=== PATIENT | female | born 1975 | race Caucasian/White ===

== ENCOUNTER 2024-06-21 13:41 | Emergency (ER) | payer OTHER, SELFPAY ==
[2024-06-21] VITALS (32 sets, daily range): BP systolic 144–181; BP diastolic 89–114; PULSE 57–79; RESP 12–19; TEMP 36.4; O2SAT 93–100
--- NOTE | ~2024-06-21 | XR_ITS ---
EXAMINATION: XR chest 1V portable DATE: 06/21/2024 15:53 INDICATION: Epigastric pain TECHNIQUE: frontal view of the chest was obtained. COMPARISON: Chest radiograph dated 10/21/2016 FINDINGS: The lungs remain clear with no focal airspace opacities, pulmonary edema, pleural effusion or pneumot horax. The cardiomediastinal silhouette is normal. Visualized bones and soft tissues are unremarkable . IMPRESSION: 1. No acute cardiopulmonary disease. Reviewed, dictated and finalized at location A.
[2024-06-21 14:16] LABS: Add Urine Microscopic? NO; Appearance Urine Clear (Clear); Bilirubin Urine Negative (Negative); Blood Urine Negative (Negative); Color Urine Light Yellow (Yellow); Glucose Urine UA Negative (Negative); Ketones Urine 1+ (Negative); Leukocyte Esterase Ur Negative LEU/UL (Negative); Nitrate Urine Negative (Negative); Protein Urine Negative (Negative); Specific Grav Ur >= 1.030 (1.010-1.020); Urobilinogen Urine 0.2 mg/dL (0.2-1.0); pH Urine 6.5 (5.0-8.0)
--- NOTE | 2024-06-21 14:18 | ED.ABDPAIN ---
HPI - Abdominal Pain General Chief Complaint: Back Pain/Injury Stated Complaint: abdominal pain/back pain Source: patient Mode of arrival: ambulatory Limitations: no limitations History of Present Illness HPI narrative: 48-year-old female with a history of depression, hypertension, epilepsy, diabetes presents to the ED with a 12 hour history of -- epigastric pain which radiates back. The pain is continuous. No exacerbating or relieving factors. Patient has nausea without any vomiting. No diarrhea. No fever. No dysuria or hematuria. patient had an ultrasound of the gallbladder in 2016 which is unremarkable. The epigastric pain was relieved by sublingual nitro. The pain decreased from a level of 7 to 2. MD elicited complaint: abdominal pain and other ( Epigastric pain) Onset (ago): hour(s) Pain Consistency: constant Location: epigastric Severity: severe Quality: aching Radiation: back Migration to: no migration Exacerbating factors: nothing Relieving factors: nothing Associated symptoms: nausea Related Data Allergies Allergy/AdvReac Type Severity Reaction Status Date / Time No Known Allergies Allergy Mild Verified 12/06/09 08:11 Review of Systems Review of Systems: All systems reviewed & are unremarkable except as noted in HPI and below Constitutional: Constitutional: Reports as per HPI and Reports no additional constitutional complaints Eyes: Eyes: Reports as per HPI and Reports no additional eye complaints ENT: Reports system reviewed and no additional complaints, except as documented and Reports as per HPI Cardiovascular: Cardiovascular: Reports as per HPI and Reports no additional cardiovascular complaints Respiratory: Respiratory: Reports as per HPI and Reports no additional respiratory complaints Gastrointestinal: Gastrointestinal: Reports as per HPI and Reports no additional gastrointestinal complaints Comments: Epigastric pain which is continuous the past 12 hours. Genitourinary: Genitourinary: Reports no additional female genitourinary complaints and Reports as per HPI Musculoskeletal: Musculoskeletal: Reports no additional musculoskeletal complaints and Reports as per HPI Integumentary/Breasts: Skin/Breast: Reports system reviewed and no additional complaints, except as docu and Reports as per HPI Neurologic: Reports system reviewed and no additional complaints, except as documented and Reports as per HPI Psychiatric: Psychiatric: Reports no additional psychiatric complaints and Reports as per HPI Endocrine: Endocrine: Reports no additional endocrine complaints and Reports as per HPI Hematologic/Lymphatic: Hematologic/Lymphatic: Reports no additional hematologic/lymphatic complaints and Reports as per HPI Allergic/Immunologic: Allergic/Immunologic: Reports no additional allergic/immunologic complaints and Reports as per HPI PMFSH Past Medical History Medical History (Updated 06/21/24 @ 18:17 by Andrew Brown MD) Depression with suicidal ideation Diabetes Epilepsy Hypertension Social History Social History (Updated 06/21/24 @ 14:47 by Andrew Brown MD) Social History: nonsmoker. No history of alcohol use. Exam Narrative: Blood pressure 176/106. Const: Orientation/consciousness: patient oriented x3 Limitations: no limitations HENMT: Head: normal to inspection Ears: external ears normal Face/Nose/Sinus: Normal external nose present Face and sinus: normal facial exam Mouth: Yes Normal oral and palatal mucosa present Throat: posterior oropharynx normal Eyes: Conjunctivae: conjunctivae normal Pupils: Equal, round and reactive pupils present EOM: EOMs intact bilaterally Direct Ophthalmoscopy: no photophobia Neck: Neck: normal visual inspection, no lymphadenopathy and no meningeal signs Chest: Chest palpation & inspection: normal inspection of the chest Resp: Effort & Inspection: normal respiratory effort Auscultation: clear to auscultation bila
--- NOTE | 2024-06-21 14:33 | ECG_ITS ---
Test Date: 2024-06-21 14:44:57 Measurements Intervals [place] Rate: 63 P: 66 DE: 144 QRS: 63 QRSD: 90 T: 101 QT: 414 QTc: 424 Interpretive Statements SINUS RHYTHM WITH SINUS ARRHYTHMIA POSSIBLE RIGHT ATRIAL ENLARGEMENT T WAVE ABNORMALITY IN HIGH LATERAL LEADS- CONSIDER ISCHEMIA BASELINE ARTIFACT- I, II, AVR, AVL ABNORMAL ECG No previous ECG available for comparison Electronically Signed On 06-21-2024 17:38:49 CDT by Emiliano Hardy D.O.
[2024-06-21 14:50] LABS: Basophils Absolute Auto 0.04 K/mm3 (0.00-0.10); Basophils Percent Auto 0.3 % (0.0-1.0); Eosinophils Absolute Auto 0.01 K/mm3 (0.02-0.50); Eosinophils Percent Auto 0.1 % (1.0-6.0); Hematocrit 41.1 % (35.0-49.0); Hemoglobin 12.8 g/dL (12.0-15.0); Immature Granulocyte Absolute 0.03 K/mm3 (0.00-0.00); Immature Granulocyte Percent A 0.2 % (0.0-0.0); Immature Platelet Fraction Pct 9.7 % (1.0-7.0); Lymphocytes Absolute Auto 0.92 K/mm3 (1.10-4.50); Lymphocytes Percent Auto 7.4 % (18.0-42.0); Mean Corpuscular HGB Conc 31.1 g/dL (32-36); Mean Corpuscular Hemoglobin 27.5 pg (27.0-31.0); Mean Corpuscular Volume 88.2 fL (78.0-102.0); Mean Platelet Volume 11.4 fl (9.2-11.8); Monocytes Absolute Auto 0.27 K/mm3 (0.10-0.90); Monocytes Percent Auto 2.2 % (2.0-11.0); Neutrophils Absolute Auto 11.17 K/mm3 (1.70-7.20); Neutrophils Percent Auto 89.8 % (50.0-70.0); Platelet Count Result 253 K/mm3 (150-420); Red Blood Count 4.66 M/mm3 (4.20-5.40); Red Cell Distribution Width 14.1 % (11.6-14.4); White Blood Count 12.4 K/mm3 (4.8-10.8)
[2024-06-21 14:51] LABS: Pregnancy On Board Control Positive; Urine Pregnancy Test Negative
[2024-06-21 15:06] LABS: Alanine Aminotransferase 8 U/L (14-59); Albumin Level 3.5 g/dL (3.4-5.0); Alkaline Phosphatase 109 U/L (46-116); Anion Gap 10 mmol/L (4-12); Aspartate Amino Transferase 16 U/L (15-37); Bilirubin,Total 0.2 mg/dL (0.00-1.00); Blood Urea Nitrogen 11 mg/dL (7-18); Carbon Dioxide 27 mmol/L (21-32); Chloride 100 mmol/L (98-108); Estimated CRCL calculation 90 ml/min; Estimated Glomerular Filt Rate > 60; Glucose 106 mg/dL (70-99); Lipase 24 U/L (16-77); Osmolality Calculated 283 mOsm/kg (285-295); Sodium 137 mmol/L (136-145); Total Protein 7.7 g/dL (6.4-8.2)
[2024-06-21 15:09] LABS: Lactic Acid Reflex 0.9 mmol/L (0.4-2.0); Troponin I 1056.7 ng/L (0.00-60.4)
[2024-06-21] MEDS: NITROGLYCERIN SL 0.4 MG TABLET SUBLINGUAL ×2 (15:28→18:47)
[2024-06-21] MEDS: ASPIRIN 81 MG CHEWABLE TABLET 324 MG PO (15:30)
[2024-06-21] MEDS: HEPARIN SOD/D5W 100 UNITS/ML 25,000 UNITS/250 ML BAG 8 UNITS IV CONT (15:31)
[2024-06-21] MEDS: HEPARIN SODIUM 5,000 UNITS/ML VIAL 4000 UNITS IV PUSH (15:46)
[2024-06-21 15:52] LABS: INR 0.9; Partial Thromboplastin Time 22.4 Sec (23.9-30.70); Prothrombin Time 10.4 Seconds (9.50-12.1)
[2024-06-21] MEDS: METOPROLOL TARTRATE 25 MG TABLET (15:59)
--- NOTE | 2024-06-21 16:47 | ECG_ITS ---
Test Date: 2024-06-21 17:01:35 Measurements Intervals [place] Rate: 61 P: 58 [place]: 140 QRS: 49 QRSD: 90 T: 97 QT: 472 QTc: 477 Interpretive Statements SINUS RHYTHM VOLTAGE CRITERIA FOR LVH T WAVE ABNORMALITY IN HIGH LATERAL LEADS- CONSIDER ISCHEMIA ABNORMAL ECG Compared to ECG 06/21/2024 14:44:57 NO SIGNIFICANT CHANGE Electronically Signed On 06-21-2024 17:43:21 CDT by Emiliano Hardy D.O.
[2024-06-21 17:13] LABS: Troponin I 1389.8 ng/L (0.00-60.4)
--- NOTE | 2024-06-21 19:10 | PC.NURSE ---
assumed care. report received from Chapito HUFFMAN. patient currently resting on stretcher with family at her side. call light in reach
--- NOTE | 2024-06-21 19:15 | PC.NURSE ---
REPORT TO ARMIDA MEZA \
--- NOTE | 2024-06-21 19:32 | PC.NURSE ---
waiting on room assignment at [facility]
[2024-06-21 19:47] LABS: Glucose Point of Care 101 mg/dl (65-105)
== END 2024-06-21 20:04 | disposition short-term general hospital (02) ==
PROVIDERS: Emergency Provider Internal Medicine Critical Care Medicine
DX: I21.4 Non-ST elevation (NSTEMI) myocardial infarction (principal); E11.9 Type 2 diabetes mellitus without complications; I10 Essential (primary) hypertension
CPT/HCPCS: 36415; 71045; 80053; 81003; 81025; 82948; 83605; 83690; 84484; 85025; 85055; 85610; 85730; 93005; 96365; 96366; 96375; 99285; A9270; J1644

== ENCOUNTER 2024-06-21 21:43 | Observation (INO) | payer OTHER, SELFPAY ==
--- NOTE | ~2024-06-21 | CT_ITS ---
Clinical Indication: Abdominal pain, elevated troponin CT Scan of the Chest, Abdomen, and Pelvis with Contrast: Technique: Contiguous sections were acquired throughout the chest, abdomen, and pelvis after intraven ous administration of 100 cc of Omnipaque 350. Dose reduction technique was used on this scan by calderon gotti automated exposure control and iterative reconstruction technique. The dose-length product (DL P) was 927.35 mGy-cm. Findings: There is no evidence of any significant mediastinal, hilar or axillary lymphadenopathy. The mediastin al soft tissues and vascular structures appear normal. No pulmonary embolus. No aortic aneurysm or di ssection. There is no evidence of pleural or pericardial effusion. The lungs are clear. No pulmonary nodules or infiltrates are noted. The liver, spleen, pancreas, gallbladder, adrenals and kidneys are within normal limits. No evidence of aortic aneurysm. No lymphadenopathy. No bowel obstruction or bowel wall thickening. There is no evidence to suggest acute appendicitis. Urinary bladder is unremarkable. No pelvic mass seen. No ascites. Impression: No significant abnormalities seen. Reviewed, dictated and finalized at [facility]. Impression: No significant abnormalities seen.
[2024-06-21 20:40] VITALS: BP 160/94; PULSE 61; RESP 18; TEMP 36.4; O2SAT 98; BMI 29.8
--- NOTE | 2024-06-21 20:41 | PC.NURSE ---
Pt arrived at 2040 by EMS from [facility] with heparin gtt. Heparin running at 800 units/8mls /hr. Awaiting assessment and further orders from provider.
--- NOTE | 2024-06-21 20:41 | ADMGEN ---
This patient, Lisa Faulkner, was admitted to IMU Room 203-01. Patient/family oriented to hospital policies and general routines including ID bracelet, bed and alarms, visiting hours, pain management, procedures, bathroom and other care routines, personal items, smoking policy, room service/diet, and visiting hours. Information on how to activate the Rapid Response Team has been discussed. Patient/Family are encouraged to report perceived risks to care and to ask questions if they do not understand what they are told or what they should do.
[2024-06-21 21:16] VITALS: PULSE 63
--- NOTE | 2024-06-21 21:16 | ECG_ITS ---
Test Date: 2024-06-21 22:01:17 Measurements Intervals [place] Rate: 66 P: 63 AR: 138 QRS: 44 QRSD: 85 T: 111 QT: 422 QTc: 443 Interpretive Statements SINUS RHYTHM MINIMAL Q WAVES- INFERIOR LEADS CANNOT R/O SEPTAL INFARCT, AGE INDETERMINATE T WAVE ABNORMALITY IN HIGH LATERAL LEADS- CONSIDER ISCHEMIA BASELINE ARTIFACT- I, II, III, AVR, AVL ABNORMAL ECG Compared to ECG 06/21/2024 17:01:35 NO SIGNIFICANT CHANGE Electronically Signed On 06-22-2024 06:42:27 CDT by Emiliano Hardy D.O.
--- NOTE | 2024-06-21 21:16 | PC.NURSE ---
Pt arrived at 2040, unable to add telemetry monitoring initially. Called [facility] to have patient discharged from tele there. Then able to add to our telemetry at 2115.
--- NOTE | 2024-06-21 21:45 | PM.IMHP ---
H&P: HPI History of Present Illness Date/Time: 06/21/24 21:30 Chief Complaint: Elevated troponins. Narrative: This is a pleasant 48-year-old female with hypertension, type 2 diabetes mellitus, depression, and anxiety who is being directly admitted to the IMU from the emergency department the [facility] for Cardiology consultation after she was found to have elevated troponins. The patient provides the following history. Shortly after getting up at 02:30 to go to work she developed a sharp and shooting pain in the periumbilical. The pain does radiate through to her back. It seems to be worse when lying flat or standing straight up and is somewhat improved when in a position or bending forwards. Ibuprofen did take the edge off but did not completely take away the pain. Associated symptoms include nausea, hot and cold sweats, lightheadedness, and feelings of anxiety. She left work at about 07:00 and was able to sleep after taking ibuprofen. When she got up the symptoms were still there and she then presented to the emergency department at the [facility]. She has never had similar symptoms. She has indigestion perhaps 1 time a month and the symptoms are not at all similar. She has not had exertional chest pain. She also denies syncope, near syncope, fever, cold and flu symptoms, palpitations, pleuritic pain, orthopnea, paroxysmal nocturnal dyspnea, significant lower extremity edema, calf pain, vomiting, diarrhea, constipation, melena, hematochezia, and dysuria. Of note, the patient has been off of all medications for 3 years due to cost. She monitors her blood pressure at home and is typically 130 over the 100. Glucose is typically 120 when she checks it. In the ED: On arrival her blood pressure was 179/106, pulse 72, respiratory rate 16, pulse ox 99% room air, temperature 97.6?. Labs were significant for WBC count of 12.4, hemoglobin 12.8, platelet 253, sodium 137, potassium 4.0, BUN 11, creatinine 0.69, glucose 106, lactic acid 0.9, high sensitivity troponin 1056.7, lipase 24. Chest x-ray showed no acute cardiopulmonary disease. EKG showed sinus rhythm with some T-wave abnormalities in the high lateral leads. Hospice Administrator on-call recommended giving the patient a dose of metoprolol tartrate and starting a heparin drip. Transfer was initiated to [facility] for Cardiology consultation. At the time my evaluation she is resting comfortably and does not have any significant discomfort. Garrett suicide Score was elevated as the patient reports suffering from depression and has had thoughts of suicide within the last month though she could not tell me a specific plan. She is not having suicidal or harmful thoughts at this time. She has good support system; family members are at bedside. Review of Systems Review of Systems: 12 systems were reviewed and are negative except for as per HPI. [facility] Past Medical History Medical History (Updated 06/21/24 @ 23:52 by Joya Hodge PA-C) Depression with anxiety Epilepsy Hypertension Type 2 diabetes mellitus Surgical History Surgical History (Updated 06/21/24 @ 22:17 by Joya Hodge PA-C) No history of previous surgery Family History Family History Father Acute myocardial infarction Social History Social History (Updated 06/21/24 @ 22:19 by Joya Hodge PA-C) Social History: Surrogate medical decision maker: Abby Faulkner, mother. Code status: Full code. Smoking status: Never smoker Alcohol intake: never Substance use: never Substance use type: does not use Do You Feel Safe in your Home?: Yes Lack of Transportation: YES Lack of Food: Sometimes True Current Housing: I Have Housing Concerned About Future Housing: YES Difficulty Paying Gas/Electric Bills: No Difficulty Paying for Meds: No Currently Unemployed: No Education: High School Diploma/GED Dif
[2024-06-21 21:49] LABS: Partial Thromboplastin Time 60.8 Seconds (22.3-36.8)
[2024-06-21 22:00] VITALS: PULSE 67
[2024-06-21 22:03] LABS: Troponin I 0.445 ng/mL (0.000-0.034)
[2024-06-21 22:42] LABS: Glucose Point of Care 132 mg/dl (65-105)
[2024-06-21] MEDS: ACETAMINOPHEN 325 MG TABLET 650 MG PO (22:45)
--- NOTE | 2024-06-21 22:45 | PC.NURSE ---
heparin gtt held per provider order
[2024-06-21 23:21] LABS: Alanine Aminotransferase 11 U/L (6-35); Albumin Level 4.3 g/dL (3.5-5.1); Alkaline Phosphatase 105 U/L (38-126); Anion Gap 8 mmol/L (4-12); Aspartate Amino Transferase 28 U/L (14-36); Bilirubin,Total 0.3 mg/dL (0.2-1.3); Blood Urea Nitrogen 10 mg/dL (7-17); Calcium 9.1 mg/dL (8.4-10.2); Carbon Dioxide 23 mmol/L (22-30); Chloride 105 mmol/L (98-107); Estimated CRCL calculation 103 ml/min; Estimated Glomerular Filt Rate > 60; Glucose 103 mg/dL (65-110); Lipase 109 U/L (23-300); Potassium 4.1 mmol/L (3.4-5.0); Sodium 136 mmol/L (137-145)
[2024-06-22] VITALS (35 sets, daily range): BP systolic 114–163; BP diastolic 64–106; PULSE 46–83; RESP 12–20; TEMP 36.4–36.6; O2SAT 96–100
--- NOTE | 2024-06-22 | ECHO_ITS ---
Patient Info Name: Lisa Faulkner Age: 48 years : 1975 Gender: Female Ht: 65 in Wt: 175 lbs BSA: 1.93 m2 HR: 66 bpm BP: 151 / 99 mmHg Heart Rhythm: Sinus Rhythm Technical Quality: Fair Exam Date: 06/22/2024 11:49 AM Exam Location: Echo Lab Patient Status: Inpatient Admit Date: 06/21/2024 Staff Ordering Physician: Escobar Mora MD/maria fernanda) Quality Assurance Calibrator: Louise Bryant RDCS Attending Provider: Alejo Loza MD Referring Physician: Morgan MCMULLEN; Exam Type: CA echo doppler color flow Study Info Indications - Elevated Troponin Complete two-dimensional, color flow and Doppler transthoracic echocardiogram is performed. Summary 1. Complete two-dimensional, color flow and Doppler transthoracic echocardiogram is performed. 2. Left ventricular chamber dimension is normal. 3. Left ventricular systolic function is mildly reduced, estimated at 40-45%. 4. There is hypokinesis of the septum, basal and mid anterior wall, basal and mid inferior wall. 5. Right ventricular systolic function is normal. 6. There is mild mitral valve regurgitation. Left Ventricle There is hypokinesis of the septum, basal and mid anterior wall, basal and mid inferior wall. Left ventricular chamber dimension is normal. Left ventricular systolic function is mildly reduced, estimated at 40-45%. There is no increased left ventricular wall thickness. Right Ventricle Right ventricular chamber dimension is normal. Right ventricular systolic function is normal. Left Atria Left atrial chamber dimension is normal. Right Atria Right atrial chamber dimension is normal. Atrial Septum Intact interatrial septum visualized by color flow imaging. Aortic Valve The aortic valve is trileaflet. There is mild aortic valve sclerosis. There is no aortic valve stenosis. There is no aortic valve regurgitation. Pulmonic Valve The pulmonic valve is not well visualized. Mitral Valve There is mild mitral valve regurgitation. Tricuspid Valve There is trace tricuspid valve regurgitation. Pericardium/Pleural There is no pericardial effusion. Inferior Vena Cava Normal inferior vena cava with >50% collapse upon inspiration consistent with normal right atrial pressure, 3 mmHg. Aorta The aortic root size at the sinus of Valsalva is normal. Left Ventricular Outflow Tract Name Value Normal LVOT 2D LVOT Diameter 1.9 cm LVOT Doppler LVOT Peak Gradient 4 mmHg LVOT Mean Gradient 2 mmHg LVOT VTI 22 cm LVOT VTI/AV VTI Ratio 0.8 LVOT Stroke Volume 65 ml LVOT CO 3.0 l/min LVOT CI 1.6 l/min/m2 Pulmonic Valve Name Value Normal PV Doppler PV Peak Gradient 2 mmHg Mitral Valve
[2024-06-22] MEDS: SODIUM CHLORIDE 0.9% IV 1,000 ML 150 ML IV CONT (00:34)
[2024-06-22] MEDS: HEPARIN SOD/D5W 100 UNITS/ML 25,000 UNITS/250 ML BAG 8 UNITS IV CONT (00:35)
[2024-06-22 00:44] LABS: Basophils Absolute Auto 0.1 K/mm3 (0.0-0.1); Basophils Percent Auto 0.4 % (0.2-1.2); Eosinophils Absolute Auto 0.1 K/mm3 (0-0.3); Eosinophils Percent Auto 0.8 % (0-4.4); Hematocrit 35.7 % (37.0-47.0); Hemoglobin 11.4 g/dL (12.0-15.0); Immature Granulocyte Absolute 0.26 K/mm3 (0.00-0.031); Immature Granulocyte Percent A 2.1 % (0-0.5); Lymphocytes Absolute Auto 1.41 K/mm3 (0.9-3.2); Lymphocytes Percent Auto 11.2 % (18.3-44.2); Mean Corpuscular HGB Conc 31.9 g/dl (32-36); Mean Corpuscular Hemoglobin 27.9 pg (26-34); Mean Corpuscular Volume 87.5 fl (80-100); Mean Platelet Volume 10.8 fl (7.4-10.4); Monocytes Absolute Auto 0.5 K/mm3 (0.1-0.6); Monocytes Percent Auto 4.3 % (2.6-8.5); Neutrophils Absolute Auto 10.2 K/mm3 (1.3-6.7); Neutrophils Percent Auto 81.2 % (45.5-73.1); Platelet Count Result 360 k/mm3 (150-375); Red Blood Count 4.08 M/mm3 (4.2-5.4); Red Cell Distribution Width 14.2 % (11.5-14.5); White Blood Count 12.5 K/mm3 (4.5-10.0)
[2024-06-22 00:55] LABS: INR 1.1; Prothrombin Time 14.4 Seconds (11.1-14.7)
[2024-06-22 01:13] LABS: Troponin I 0.362 ng/mL (0.000-0.034)
[2024-06-22 03:56] LABS: Cholesterol 175 mg/dL (0-200); HDL Direct 57 mg/dL; Triglycerides 98 mg/dL (<150)
[2024-06-22 04:06] LABS: LDL Cholesterol Direct 84 mg/dL
[2024-06-22 04:12] LABS: Hemoglobin A1C 5.6 % (<5.7)
[2024-06-22 04:15] LABS: Troponin I 0.291 ng/mL (0.000-0.034)
[2024-06-22] MEDS: HEPARIN SODIUM 5,000 UNITS/ML VIAL 4000 UNITS IV PUSH (07:14)
[2024-06-22 07:25] LABS: Glucose Point of Care 98 mg/dl (65-105)
[2024-06-22] MEDS: METOPROLOL TARTRATE 25 MG TABLET PO ×2 (09:26→21:11)
--- NOTE | 2024-06-22 10:05 | PM.IMPN ---
Progress Note: A&P Assessment and Plan (1) Non-ST elevated myocardial infarction (non-STEMI): Code(s): I21.4 - Non-ST elevation (NSTEMI) myocardial infarction Status: Acute Assessment and Plan: Patient presents with acute onset of epigatric pain. CT Ch/A/P was negative for acute findings. No PE Lipase normal. LFTs normal. Troponin elevated to 0.445. Lipid panel noted. EKG showing T wave inversion high lateral leads. On heparin drip for possible LHC today. Discussed with Cardiology COntinue metoprolol. Add ASA and Lipitor. (2) Abdominal pain: Code(s): R10.9 - Unspecified abdominal pain Status: Acute Assessment and Plan: Concern for anginal equivalent. If cardiac ischemia evaluation negative, consider gastritis. Add Protonix (3) Hypertension: Code(s): I10 - Essential (primary) hypertension Status: Acute Assessment and Plan: Patient's blood pressure was reviewed on 06/22/24 Blood pressure mild elevated Will continue metoprolol (4) Type 2 diabetes mellitus: Code(s): E11.9 - Type 2 diabetes mellitus without complications Status: Acute Assessment and Plan: A1c 5.6%. The patient's blood glucose was reviewed on 06/22 Glucose remains well controlled. Continue AccuCheks covering with sliding scale. Hypoglycemia protocol available as needed. Continue to monitor (5) Epilepsy: Code(s): G40.909 - Epilepsy, unspecified, not intractable, without status epilepticus Status: Acute Assessment and Plan: Patient developed seizure disorder at age 15. She has been seizure free for 14 years with 12 of those years without medications. (6) Depression with anxiety: Code(s): F41.8 - Other specified anxiety disorders Status: Acute Assessment and Plan: Mood stable Plan DVT prophylaxis - Heparin Code status - full Subjective Date/time seen: 06/22/24 10:05 Interval history: 48yo female with diet controlled DM, HTN and seizures here for upper abdominal pain and elevated Trop. Patient feels better overall but having headache today with slight nausea. Headache may be from caffeine withdrawal. She described the pain as sharp located upper abdomen that radiated straight through to the back. Exam Narrative: AF 97.9 151/99 76 14 100% ra Gen - NARD Chest - CTA bilaterally, nml RR CV - RRR S1/S2. Tele showing occasional bradycardia Abd - Soft, ND, mild epigastric pain. Ext - No pedal edema Neuro - Alert and oriented. Nonfocal exam. Psych - Nml mood and affect Skin - Warm and dry Objective Data Vital Signs Vital Signs: Vital Signs - 24 hr 06/21/24 20:40 06/22/24 00:10 06/21/24 21:00 Temperature 97.5 F L 97.8 F Pulse Rate 61 68 Respiratory Rate 18 16 Blood Pressure 160/94 H 143/85 H Pulse Oximetry 98 99 Oxygen Delivery Room Air 06/21/24 22:00 06/22/24 00:00 06/21/24 21:16 Temperature Pulse Rate 67 69 63 Respiratory Rate Blood Pressure Pulse Oximetry Oxygen Delivery 06/22/24 01:55 06/22/24 03:00 06/22/24 04:41 Temperature 98 F Pulse Rate 62 62 Respiratory Rate 20 Blood Pressure 148/89 H Pulse Oximetry 98 Oxygen Delivery Room Air 06/22/24 04:00 06/22/24 06:00 06/22/24 08:35 Temperature 97.9 F Pulse Rate 71 68 66 Respiratory Rate 14 Blood Pressure 151/99 H Pulse Oximetry 100 Oxygen Delivery 06/22/24 09:26 Temperature Pulse Rate 76 Respiratory Rate Blood Pressure Pulse Oximetry Oxygen Delivery Intake/Output Intake/Output: Intake & Output 06/19/24 06/20/24 06/21/24 06/22/24 23:59 23:59 23:59 23:59 Intake Total 553.2 Output Total 500 Balance 53.2 Meds/Results Medications: Active Medications Generic Name Dose Route Start Last Admin Trade Name Freq PRN Reason Stop Dose Admin Acetaminophen 650 mg 06/21/24 21:44 06/21/24 22:45 Acetaminophen 325 Mg Tablet PO 650
--- NOTE | 2024-06-22 11:29 | PM.CNCAR ---
Assessment and Plan Assessment and plan (1) Non-ST elevated myocardial infarction (non-STEMI): Code(s): I21.4 - Non-ST elevation (NSTEMI) myocardial infarction Status: Acute Assessment and Plan: Unclear if her abdominal pain is an anginal equivalent, however, given the degree of troponin elevation along with risk factors for heart disease, recommended LHC. Discussed indication for the procedure, procedure details, risks vs benefits, alternative management options, etc with the patient. Patient agreeable to proceed. Will plan for LHC today. Continue Heparin drip in the meantime. Further recommendations and plan pending results of LHC. Echocardiogram ordered and pending. (2) Abdominal pain: Code(s): R10.9 - Unspecified abdominal pain Status: Acute Assessment and Plan: As above. If cardiac workup negative, recommended evaluating for GI etiology. (3) Type 2 diabetes mellitus: Code(s): E11.9 - Type 2 diabetes mellitus without complications Status: Acute Assessment and Plan: Hgb A1c is 5.6. Management as per primary team. (4) Hypertension: Code(s): I10 - Essential (primary) hypertension Status: Acute Assessment and Plan: Elevated. Started on Metoprolol, continue. Likely will need another antihypertensive agent, will plan to start pending results of echo and LHC. Plan Recommendations and plan discussed with Hospitalist. History of Present Illness History of Present Illness Consult date/time: 06/22/24 11:29 Requesting physician: Joya Hodge PA-C Consult reason: Other (NSTEMI) Reason For Visit: NSTEMI Narrative: This is a 48 year old female with hypertension, diet-controlled type 2 diabetes mellitus, seizure disorder, depression who had acute onset periumbilical and epigastric abdominal pain at 2:30 AM on 06/21. Pain radiated to her back. No chest pain. She was evaluated at [facility] ED, where it was noted that her abdominal pain improved with sublingual NTG. EKG showed sinus rhythm, T-wave inversions in the high lateral leads. No prior EKG available for comparison. Her initial troponin at [facility] was 1,056 [0-60] with repeat at 1,389. She was started on Heparin drip and transferred to [facility] for cardiology evaluation. Troponins here are 0.445, 0.362, 0.291. CXR negative for acute findings. CTA of the chest / abdomen / pelvis without any significant abnormalities. Blood pressure as high as 179/106 on admission. Patient denies any prior cardiac history. Reports her father had KS resulting in 2 stents at the age of 55. No current or past tobacco use, alcohol use, or illicit drug use. Patient reports that she does not take any medications at home due to cost. Review of Systems Review of Systems: All systems reviewed & are unremarkable except as noted in HPI and below (HPI) [facility] Past Medical History Medical History Depression with anxiety Epilepsy Hypertension Type 2 diabetes mellitus Surgical History Surgical History No history of previous surgery Family History Family History Father Acute myocardial infarction Social History Social History Social History: Surrogate medical decision maker: Abby Faulkner, mother. Code status: Full code. Smoking status: Never smoker Alcohol intake: never Substance use: never Substance use type: does not use Do You Feel Safe in your Home?: Yes Lack of Transportation: YES Lack of Food: Sometimes True Current Housing: I Have Housing Concerned About Future Housing: YES Difficulty Paying Gas/Electric Bills: No Difficulty Paying for Meds: No Currently Unemployed: No Education: High School Diploma/GED Difficulty w/ Childcare or Family Care: No Additional living arrangemen
[2024-06-22 11:34] LABS: Glucose Point of Care 118 mg/dl (65-105)
[2024-06-22] MEDS: PANTOPRAZOLE SODIUM IV 40 MG VIAL IV PUSH ×2 (11:58→21:12)
[2024-06-22] MEDS: ASPIRIN 81 MG CHEWABLE TABLET PO (11:58)
[2024-06-22] MEDS: ATORVASTATIN 40 MG TABLET PO (11:59)
--- NOTE | 2024-06-22 13:41 | WPDMODSED ---
Moderate Sedation Note-Pt Data Patient Data Diagnosis: NSTEMI Present Complaint: NSTEMI Procedure to be performed/Plan: Coronary angiography, left heart cath, +/- PCI Allergies Allergy/AdvReac Type Severity Reaction Status Date / Time No Known Allergies Allergy Mild Verified 06/21/24 21:37 Home Medications Medication Instructions Recorded Confirmed Type No Home Medications 06/21/24 06/21/24 History Current Medications: Active Medications Acetaminophen (Acetaminophen 325 Mg Tablet) 650 mg PO Q6H PRN PRN Reason: Mild Pain (1-3) or Fever Last Admin: 06/21/24 22:45 Dose: 650 mg Aspirin (Aspirin 81 Mg Chewable Tablet) 81 mg PO DAILY@0800 [facility] Last Admin: 06/22/24 11:58 Dose: 81 mg Atorvastatin Calcium (Atorvastatin 40 Mg Tablet) 40 mg PO DAILY [facility] Last Admin: 06/22/24 11:59 Dose: 40 mg Dextrose (Dextrose 50% 25 Gm/50 Ml Syringe) 12.5 gm IV PUSH PRN PRN; Protocol PRN Reason: Hypoglycemia Glucagon (Glucagon For Inj 1 Mg Vial) 1 mg IM PRN PRN; Protocol PRN Reason: Hypoglycemia Glucose (Glucose Oral Gel 15 Gm Of Glucse In 37.5 Gm Tube) 15 gm PO PRN PRN; Protocol PRN Reason: Hypoglycemia Heparin Sodium (Porcine) (Heparin Sodium 5,000 Units/Ml Vial) 4,000 units IV PUSH PRN PRN PRN Reason: aPTT less than 55 seconds Last Admin: 06/22/24 07:14 Dose: 4,000 units Heparin Sodium (Porcine) (Heparin Sodium 5,000 Units/Ml Vial) 2,500 units IV PUSH PRN PRN PRN Reason: aPTT 55 - 70 seconds Dextrose (Dextrose 5% 1,000 Ml) 1,000 mls @ 100 mls/hr IVPB PRN PRN; Protocol PRN Reason: Hypoglycemia Heparin Sodium/Dextrose (Heparin Sodium/D5w 100 Units/Ml) 25,000 units in 250 mls @ 11 mls/hr IV CONT .[id number] [facility]; Protocol Last Titration: 06/22/24 07:14 Dose: 1,100 units/hr, 11 mls/hr Insulin Aspart (Insulin Aspart (*Bkc) 100 Units/Ml) 2 - 5 units SUB-Q TIDWM [facility]; Protocol Last Admin: 09/03/24 09:33 Dose: Not Given Insulin Aspart (Insulin Aspart (*Bkc) 100 Units/Ml) 1 - 2 units SUB-Q HS KIMBER[facility]; Protocol Metoprolol Tartrate (Metoprolol Tartrate 25 Mg Tablet) 25 mg PO Q12HR KIMBERLY Last Admin: 06/22/24 09:26 Dose: 25 mg Morphine Sulfate (Morphine Sulfate (*Crx) 2 Mg/Ml Inj) 2 mg IV PUSH Q4H PRN PRN Reason: Pain Rated 7-10 Nitroglycerin (Nitroglycerin Sl 0.4 Mg Tablet) 0.4 mg SUBLINGUAL Q5MIN PRN PRN Reason: Chest Pain Pantoprazole Sodium (Pantoprazole Sodium Iv 40 Mg Vial) 40 mg IV PUSH Q12HR [facility] Last Admin: 06/22/24 11:58 Dose: 40 mg Perflutren Lipid Microsphere (Perflutren Lipid Microspheres 1.5 Ml Vial Diluted To 10 Ml Total Volume) 0 ml IV PUSH ONCE PRN; Protocol PRN Reason: adequate visualization Stop: 06/25/24 09:09 Sedation/Anesthesia: No previous sedation/anesthesia problems (including family history). [facility] Past Medical History Medical History Depression with anxiety Epilepsy Hypertension Type 2 diabetes mellitus Surgical History Surgical History No history of previous surgery Family History Family History Father Acute myocardial infarction Social History Social History Social History: Surrogate medical decision maker: Abby Faulkner, mother. Code status: Full code. Smoking status: Never smoker Alcohol intake: never Substance use: never Substance use type: does not use Do You Feel Safe in your Home?: Yes Lack of Transportation: YES Lack of Food: Sometimes True Current Housing: I Have Housing Concerned About Future Housing: YES Difficulty Paying Gas/Electric Bills: No Difficulty Paying for Meds: No Currently Unemployed: No Education: High School Diploma/GED Difficulty w/ Childcare or Family Care: No Additional living arrangements comments: Lives alone in [place]. Since sister live nearby. Additional occupation/education com
--- NOTE | 2024-06-22 13:52 | WPDCARDPROC ---
Cardiac Cath Procedure Note Date of procedure:: 06/22/24 Performing physician:: CATHETERIZATION LABORATORY REPORT Procedure Date: 06/22/2024 Clinical Nursing Professor: Escobar Mora M.D., [facility]? Referring Physician: Escobar Mora M.D. ? Anesthesia: Versed and Fentanyl were ordered and given in my presence at 12:44, procedure ended at 13:29. Supervision of nurse monitored moderate sedation with Versed and Fentanyl was provided for 45 minutes. Total of Versed 1mg and Fentanyl 50mcg were administered by the Office Workforce Planner RN Debbie Bates. Pre-op Diagnosis: Coronary artery disease Post-op Diagnosis: Moderate non-obstructive coronary artery disease of the obtuse marginal branch. IFR negative at 0.99 (pathological is <0.89). Procedure(s): 1. Moderate sedation 2. Ultrasound-guided access of the right radial artery 3. Coronary angiography 4. Left heart cath Access Site: Right radial artery Brief History and Clinical Indications: Patient is a 48 year old female who is referred for [facility] for NSTEMI All risks, benefits and alternatives to left heart catheterization with or without percutaneous coronary intervention was discussed at length with the patient. Risk of complications including but not limited to bleeding, infection, arrhythmia, stroke, worsening kidney function, blood loss, groin hematoma, limb loss, emergency coronary artery bypass grafting, and even were discussed with the patient and all questions were answered. The patient understood and wished to proceed. Time out called, patient name, date of , medical record number, allergies, procedure performed, identify Clinical Nursing Professor, patient and staff member concurred with accurate data, procedure carried on. Findings: LEFT HEART CATHETERIZATION FINDINGS: 1. Left main: The left main coronary artery is widely patent without any significant obstructive disease. 2. Left anterior descending: The proximal LAD has mild disease. Remainder of the LAD has luminal irregularities. 3. Ramus: Luminal irregularities. 4. Left circumflex: The left circumflex artery has luminal irregularities. The obtuse marginal branch has moderate disease in its proximal-mid portion. 5. Right coronary artery: The RCA is the dominant vessel. The mid portion of the RCA has mild disease. Description of Procedure: Informed consent signed and placed in the chart. Patient transferred to tag and label cutter room. Prepped and draped in usual sterile fashion. 2% lidocaine injected subcutaneously in right wrist area. 22-gauge venipuncture catheter used to access the right radial artery under ultrasound guidance. 6-FR slender sheath placed in right radial artery. Nitroglycerine and Verapamil were given intraarterial through the sheath. Versacore wire advanced under fluoroscopy 5F Tig 4 diagnostic catheter engaged Left Main Coronary Artery. 5F Tig 4 diagnostic catheter engaged Right Coronary Artery Multiple orthogonal angiogram obtained and reviewed. We decided to proceed with IFR evaluation of the OM lesion. Angiomax was used for anticoagulation. 6F CLS 3.0 guide catheter was used to intubate the left main. 0.014 IFR wire was advanced into the vessel, calibrated, and then advanced distal to the lesion in the OM. IFR was 0.99 (Negative. Pathological is <0.89). IFR wire was removed. Intracoronary NTG was administered No angiographic complications identified. Hemostasis was achieved by application of TR band. Disposition: Floor Plan: The patient will be monitored in the recovery area. Continue aggressive medical therapy and risk factor modification. ? Escobar Mora M.D. Interventional Cardiology
[2024-06-22] MEDS: SODIUM CHLORIDE 0.9% IV 1,000 ML 125 ML IV CONT (18:38)
[2024-06-22 20:58] LABS: Glucose Point of Care 108 mg/dl (65-105)
[2024-06-23] VITALS (10 sets, daily range): BP systolic 144–161; BP diastolic 88–92; PULSE 48–66; RESP 18; TEMP 36.1–36.6; O2SAT 99–100
[2024-06-23 05:20] LABS: Basophils Percent Auto 0.4 % (0.2-1.2); Eosinophils Absolute Auto 0.2 K/mm3 (0-0.3); Eosinophils Percent Auto 1.6 % (0-4.4); Hemoglobin 11.2 g/dL (12.0-15.0); Immature Granulocyte Absolute 0.03 K/mm3 (0.00-0.031); Immature Granulocyte Percent A 0.3 % (0-0.5); Lymphocytes Absolute Auto 1.78 K/mm3 (0.9-3.2); Lymphocytes Percent Auto 18.7 % (18.3-44.2); Mean Corpuscular HGB Conc 31.1 g/dl (32-36); Mean Corpuscular Hemoglobin 27.8 pg (26-34); Mean Corpuscular Volume 89.3 fl (80-100); Mean Platelet Volume 11.7 fl (7.4-10.4); Monocytes Absolute Auto 0.5 K/mm3 (0.1-0.6); Neutrophils Absolute Auto 7.1 K/mm3 (1.3-6.7); Platelet Count Result 296 k/mm3 (150-375); Red Blood Count 4.03 M/mm3 (4.2-5.4); White Blood Count 9.5 K/mm3 (4.5-10.0)
[2024-06-23 05:31] LABS: Anion Gap 9 mmol/L (4-12); Blood Urea Nitrogen 9 mg/dL (7-17); Calcium 8.7 mg/dL (8.4-10.2); Carbon Dioxide 25 mmol/L (22-30); Chloride 102 mmol/L (98-107); Estimated CRCL calculation 103 ml/min; Estimated Glomerular Filt Rate > 60; Glucose 101 mg/dL (65-110); Potassium 3.6 mmol/L (3.4-5.0); Sodium 136 mmol/L (137-145)
[2024-06-23 07:57] LABS: Glucose Point of Care 89 mg/dl (65-105)
[2024-06-23] MEDS: ATORVASTATIN 40 MG TABLET PO (09:25)
[2024-06-23] MEDS: METOPROLOL TARTRATE 25 MG TABLET PO (09:26)
[2024-06-23] MEDS: ASPIRIN 81 MG CHEWABLE TABLET PO (09:26)
[2024-06-23] MEDS: PANTOPRAZOLE SODIUM IV 40 MG VIAL IV PUSH (09:26)
--- NOTE | 2024-06-23 10:35 | PM.PNCARD ---
Progress Note: A&P Assessment and Plan (1) Non-ST elevated myocardial infarction (non-STEMI): Code(s): I21.4 - Non-ST elevation (NSTEMI) myocardial infarction Status: Acute Assessment and Plan: Cardiac catheterization showed moderate non-obstructive coronary artery disease of the obtuse marginal branch. IFR negative at 0.99 (pathological is <0.89). She could have had a coronary spasm, [place], etc. Recommend to continue ASA 81mg once daily along with high intensity statin. Could also be a variant of stress cardiomyopathy given her echocardiogram findings as well. (2) Cardiomyopathy: Code(s): I42.9 - Cardiomyopathy, unspecified Status: Acute Assessment and Plan: Echocardiogram shows LVEF 40-45%, hypokinesis of the septum, basal and mid anterior wall, basal and mid inferior ruiz. The regional wall motion abnormality is out of proportion to her coronary disease and not in the vascular distribution one would expect. Therefore, I suspect she may have a variant of stress cardiomyopathy. Will start Losartan, Spironolactone. Switch Metoprolol to Toprol. Ideally, would prefer Entresto, however, I am worried about the costs of medications for her as she has not been taking any medications for the past few years due to cost. (3) Abdominal pain: Code(s): R10.9 - Unspecified abdominal pain Status: Acute Assessment and Plan: Improved. Workup and management as per primary team. (4) Hypertension: Code(s): I10 - Essential (primary) hypertension Status: Acute Assessment and Plan: Elevated. As noted above, starting Losartan, Spironolactone, Toprol. (5) Type 2 diabetes mellitus: Code(s): E11.9 - Type 2 diabetes mellitus without complications Status: Acute Assessment and Plan: Management as per primary team. Plan Recommendations and plan discussed with Hospitalist. Will arrange outpatient follow up in our office. Subjective Date/time seen: 06/23/24 10:35 Interval history: Reason for visit: NSTEMI HPI: This is a 48 year old female with hypertension, diet-controlled type 2 diabetes mellitus, seizure disorder, depression who had acute onset periumbilical and epigastric abdominal pain at 2:30 AM on 06/21. Pain radiated to her back. No chest pain. She was evaluated at [place] [facility], where it was noted that her abdominal pain improved with sublingual NTG. EKG showed sinus rhythm, T-wave inversions in the high lateral leads. No prior EKG available for comparison. Her initial troponin at [place] was 1,056 [0-60] with repeat at 1,389. She was started on Heparin drip and transferred to [facility] for cardiology evaluation. Troponins here are 0.445, 0.362, 0.291. CXR negative for acute findings. CTA of the chest / abdomen / pelvis without any significant abnormalities. Blood pressure as high as 179/106 on admission. Patient denies any prior cardiac history. Reports her father had CA resulting in 2 stents at the age of 55. No current or past tobacco use, alcohol use, or illicit drug use. Patient reports that she does not take any medications at home due to cost. Date of service 06/23: Feeling much better today. No more abdominal pain. Eating and drinking okay. Tele unremarkable. Review of Systems Review of Systems: All systems reviewed & are unremarkable except as noted in HPI and below (HPI) Exam Const: General: comfortable and no acute distress HENMT: Mouth: Yes moist mucous membranes Eyes: General: appearance normal, both eyes and all related structures Sclera: sclerae normal Resp: Effort & Inspection: normal respiratory effort Cardio: Rate: regular rate Rhythm: regular rhythm Skin: General skin exam: normal color Neuro: Speech: normal speech Psych: Mental Status: mental status grossly normal Affect: normal affect Objective Data Vital Signs Vital Signs: Vital Signs - 24 hr 06/22/24 13:50 06/22/24 14:15 06/22/24 14:30 Temperature
[2024-06-23 11:44] LABS: Glucose Point of Care 109 mg/dl (65-105)
--- NOTE | 2024-06-23 13:05 | PM.DS ---
DS: Admitting Diagnosis Discharge Date 06/23/2024 Admitting Diagnosis Elevated troponins. DS: Discharge Diagnosis Discharge Diagnosis (1) Non-ST elevated myocardial infarction (non-STEMI): Code(s): I21.4 - Non-ST elevation (NSTEMI) myocardial infarction Status: Acute Assessment and Plan: Patient presents with acute onset of epigatric pain. CT Ch/A/P was negative for acute findings. No PE Lipase normal. LFTs normal. Troponin elevated to 0.445. Lipid panel noted. EKG showing T wave inversion high lateral leads. On heparin drip for possible LHC today. Discussed with Cardiology COntinue metoprolol. Add ASA and Lipitor. (2) Abdominal pain: Code(s): R10.9 - Unspecified abdominal pain Status: Acute Assessment and Plan: Concern for anginal equivalent. If cardiac ischemia evaluation negative, consider gastritis. (3) Hypertension: Code(s): I10 - Essential (primary) hypertension Status: Acute Assessment and Plan: Patient's blood pressure was reviewed on 06/22/24 Blood pressure mild elevated Will continue metoprolol (4) Type 2 diabetes mellitus: Code(s): E11.9 - Type 2 diabetes mellitus without complications Status: Acute Assessment and Plan: A1c 5.6%. The patient's blood glucose was reviewed on 06/22 Glucose remains well controlled. Continue AccuCheks covering with sliding scale. Hypoglycemia protocol available as needed. pt states she is a diet controlled dm (5) Epilepsy: Code(s): G40.909 - Epilepsy, unspecified, not intractable, without status epilepticus Status: Acute Assessment and Plan: Patient developed seizure disorder at age 15. She has been seizure free for 14 years with 12 of those years without medications. (6) Depression with anxiety: Code(s): F41.8 - Other specified anxiety disorders Status: Acute Assessment and Plan: Mood stable DS: Summary Hospital Course Hospital Course: Patient presents with acute onset of epigatric pain. CT Ch/A/P was negative for acute findings. No PE Lipase normal. LFTs normal. Troponin elevated to 0.445. Lipid panel noted. EKG showing T wave inversion high lateral leads. On heparin drip for possible LHC today. Discussed with Cardiology COntinue metoprolol. Add ASA and Lipitor. 48yo female with diet controlled DM, HTN and seizures here for upper abdominal pain and elevated Trop. sp heart cath seen by cardiology ok to dc on cardiac meds. heart cath shows -LEFT HEART CATHETERIZATION FINDINGS: 1. Left main: The left main coronary artery is widely patent without any significant obstructive disease. 2. Left anterior descending: The proximal LAD has mild disease. Remainder of the LAD has luminal irregularities. 3. Ramus: Luminal irregularities. 4. Left circumflex: The left circumflex artery has luminal irregularities. The obtuse marginal branch has moderate disease in its proximal-mid portion. 5. Right coronary artery: The RCA is the dominant vessel. The mid portion of the RCA has mild disease. Time Spent with Patient Time attestation: Total time spent providing and/or coordinating discharge services:50 minutes on day of dc Exam Narrative: Gen - NARD Chest - CTA bilaterally, nml RR CV - RRR S1/S2. Tele showing occasional bradycardia Abd - Soft, ND, mild epigastric pain. Ext - No pedal edema Neuro - Alert and oriented. Nonfocal exam. Psych - Nml mood and affect Skin - Warm and dry DS: Data Data Completed and Pending Labs on day of discharge: Labs from last 24 hours 06/23/24 06/23/24 06/23/24 11:30 07:29 04:42 WBC 9.5 RBC 4.03 L Hgb 11.2 L Hct 36.0 L MCV 89.3 MCH 27.8 MCHC 31.1 L RDW 14.0 Plt Count 296 MPV 11.7 H Immature Gran % (Auto) 0.3 Neut % (Auto) 74.0 H Lymph % (Auto) 18.7 [place] % (Auto) 5.0 Eos % (Auto) 1.6 Baso % (Auto) 0.4 Lymph # (Auto
[2024-06-23] MEDS: LOSARTAN POTASSIUM 25 MG TABLET PO (14:08)
[2024-06-23] MEDS: SPIRONOLACTONE 25 MG TABLET PO (14:08)
== END 2024-06-23 14:45 | disposition home or self-care (01) ==
PROVIDERS: Internal Medicine; Physician Assistant; Admitting Provider Hospitalist; Visit Provider Family Medicine
PROC: (CPT 93454; principal; 2024-06-22 12:00)
PROC: 4A033BC Measurement of Arterial Pressure, Coronary, Percutaneous Approach (ICD-10-PCS; CPT 93571; 2024-06-22 12:00)
DX: I21.4 Non-ST elevation (NSTEMI) myocardial infarction (principal); I25.10 Atherosclerotic heart disease of native coronary artery without angina pectoris; I42.9 Cardiomyopathy, unspecified; I10 Essential (primary) hypertension; I34.0 Nonrheumatic mitral (valve) insufficiency; E11.9 Type 2 diabetes mellitus without complications; F41.8 Other specified anxiety disorders; G40.909 Epilepsy, unspecified, not intractable, without status epilepticus; R10.9 Unspecified abdominal pain
CPT/HCPCS: 36415; 71275; 74174; 80048; 80053; 80061; 82948; 83036; 83690; 84484; 85025; 85610; 85730; 93005; 93306; 93454; 93571; A9270; C1769; C1887; C1894; G0378; G0379; J0583; J1644; J2250; J2305; J2405; J2470; J3010; J7030; J7040; Q9967